=== PATIENT | female | born 1970 | race African-American/Black ===

== ENCOUNTER 2019-03-12 15:00 | Outpatient (CLI) | payer BC, OTHER | END 2019-03-12 15:01 | disposition home or self-care (01) | LOC: SLEEPLAB 15:00 | PROVIDERS: ATTEND Family Medicine | DX: G47.33 Obstructive sleep apnea (adult) (pediatric) (principal); F51.9 Sleep disorder not due to a substance or known physiological condition, unspecified; G47.10 Hypersomnia, unspecified; R51 Headache; R53.83 Other fatigue; E66.9 Obesity, unspecified; F41.8 Other specified anxiety disorders; R06.83 Snoring | CPT/HCPCS: 95806 ==